=== PATIENT | female | born 1985 | race Caucasian/White ===

== ENCOUNTER 2022-06-21 17:46 | Emergency (ER) | payer SELFPAY ==
[~2022-06-21] VITALS: Ht 160 cm; Wt 77.1 kg
[2022-06-21] MEDS ORDERED: DEXAMETHASONE SOD PHOS 10 MG/1 ML VIAL IM ONE (18:15)
[2022-06-21] MEDS ORDERED: HYDROCODONE/APAP 7.5MG-325MG 1 EA TAB PO ONE (18:15)
[2022-06-21] MEDS ORDERED: GABAPENTIN300 MG PO (18:24)
[2022-06-21] MEDS ORDERED: MEDROL4 M2 PO (18:24)
[2022-06-21] MEDS ORDERED: ANAPROX DS550 MG PO (18:24)
[2022-06-21] MEDS ORDERED: METHOCARBAMOL750 MG PO (18:24)
== END 2022-06-21 21:00 | disposition home or self-care (01) ==
LOC: ER 17:55
DX: M54.12 Radiculopathy, cervical region (principal)
CPT/HCPCS: 72125; 96372; 99283; J1100